=== PATIENT | male | born 1960 | race Caucasian/White ===

== ENCOUNTER 2016-12-12 11:51 | Inpatient (IN) | payer OTHER ==
[2016-12-12 13:41] VITALS: BMI 35.5
--- NOTE | 2016-12-12 17:01 | HP ---
Admission ROS [facility] - [facility] Chief Complaint: I WANT TO GO TO REHAB Allergies/Adverse Reactions: Allergies Allergy/AdvReac Type Severity Reaction Status Date / Time No Known Allergies Allergy Verified 12/12/16 16:12 History of Present Illness: 56 YEARS OLD MALE WITH LONG HISTORY OF ALCOHOL, OPIUM, NICOTINE DEPENDENCE, HAS HYPERTENSION DIABETES II DVT, HEPATITIS C TREATED, AND DEPRESSION IS ADMITTED TO REHAB. Exam Limitations: No Limitations - Ebola screening Have you traveled outside of the country in the last 21 days: No Have you had contact with anyone from an Ebola affected area: No Have you been sick,other than usual withdrawal symptoms: No Do you have a fever: No - Review of Systems Constitutional: Weight Stable EENT: reports: Other (EYE GLASSES) Respiratory: reports: No Symptoms reported Cardiac: reports: No Symptoms Reported GI: reports: No Symptoms Reported : reports: No Symptoms Reported Musculoskeletal: reports: Joint Pain (LEFT LEG) Integumentary: reports: Change in Color (LEFT LEG) Neuro: reports: No Symptoms reported Endocrine: reports: No Symptoms Reported Hematology: reports: Blood Clots (DVT LEFT LEG) Psychiatric: reports: Judgement Intact, Orientated x3, Depressed Other Systems: Reviewed and Negative Patient History - Patient Medical History Hx Anemia: No Hx Asthma: No Hx Chronic Obstructive Pulmonary Disease (COPD): No Hx Cancer: No Hx Cardiac Disorders: No Hx Congestive Heart Failure: No Hx Hypertension: Yes Hx Hypercholesterolemia: No Hx Pacemaker: No HX Cerebrovascular Accident: No Hx Seizures: No Hx Dementia: No Hx Diabetes: Yes Hx Gastrointestinal Disorders: No Hx Liver Disease: No Hx Genitourinary Disorders: No Hx Sexually Transmitted Disorders: No Hx Renal Disease (ESRD): No Hx Thyroid Disease: No Hx Human Immunodeficiency Virus (HIV): No Hx Hepatitis C: Yes (TREATED) Hx Depression: Yes Hx Suicide Attempt: No Hx Bipolar Disorder: No Hx Schizophrenia: No - Patient Surgical History Past Surgical History: No - PPD History Previous Implant?: Yes Documented Results: Negative w/o proof Implanted On Prior [facility] Admission?: No PPD to be Administered?: Yes - Smoking Cessation Smoking history: Current every day smoker Have you smoked in the past 12 months: Yes Aproximately how many cigarettes per day: 8 Cigars Per Day: 0 Hx Chewing Tobacco Use: No Initiated information on smoking cessation: Yes 'Breaking Loose' booklet given: 06/16/17 - Substance & Tx. History Hx Alcohol Use: Yes Hx Substance Use: Yes Substance Use Type: Alcohol, Heroin Hx Substance Use Treatment: Yes ([facility] 12/07-12/12/2016 DETOX) - Substances Abused Alcohol Route: Oral Frequency: Daily Amount used: [id number] BEER Age of first use: 14 Date of Last Use: 12/05/16 Heroin Route: Inhalation Frequency: Daily Amount used: 10 BAGS Age of first use: 14 Date of Last Use: 12/05/16 Family Disease History - Family Disease History Family Disease History: Diabetes: Father, Mother, Brother, Sister, Heart Disease : Mother Admission Physical Exam [facility] - Vital Signs Vital Signs: Vital Signs - 24 hr 12/12/16 13:38 Temperature 96.8 F L Pulse Rate 70 Respiratory 18 Rate Blood Pressure 138/70 - Physical General Appearance: Yes: No Apparent Distress, Appropriately Dressed, Obese HEENTM: Yes: Hearing grossly Normal, Normal ENT Inspection, Normocephalic, Normal Voice Respiratory: Yes: Chest Non-Tender, Lungs Clear, Normal Breath Sounds, No Respiratory Distress, No Accessory Muscle Use Neck: Yes: Supple, Trachea in good position Breast: Yes: Breasts Symetrical Cardiology: Yes: Regular Rhythm, Regular Rate, S1, S2 Abdominal: Yes: Non Tender, Soft Genitourinary: Yes: Within Normal Limits Back: Yes: Normal Inspection Musculoskeletal: Yes: full range of Motion, Gait Steady, Joint swelling (LEFT LOWER EXTREMITY) Extremities: Yes: Normal Range of Motion, Non-Tender, Swelling (LEFT LOWER EXTREMITY) Neurological: Yes: Fully Oriented, Alert, Motor Strength 5/5, Normal Mood/Affect , Normal Response Integumentary: Yes: Warm, Erythema (LEFT LOWER EXTREMITY) Lymphatic: Yes: Within Normal Limits - Diagnostic (1) Alcohol dependence with uncomplicated withdrawal Current Visit: Yes Status: Acute (2) Opioid dependence with withdrawal Current Visit: Yes Status: Acute (3) Hypertension Current Visit: Yes Status: Chronic Qualifiers: Hypertension type: essential hypertension Qualified Code(s): I10 - Essential (primary) hypertension (4) Diabetes mellitus, type II, insulin dependent Current Visit: Yes Status: Chronic (5) 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 Current Visit: Yes Status: Chronic Qualifiers: Laterality: left Qualified Code(s): I82.412 - Acute embolism and thrombosis of left femoral vein (6) Nicotine dependence Current Visit: Yes Status: Acute Qualifiers: Nicotine product type: cigarettes Substance use status: in withdrawal Qualified Code(s): F17.213 - Nicotine dependence, cigarettes, with withdrawal Cleared for Admission [facility] - Detox or Rehab [facility] Level of Care: Observation Bed Detox Regimen/Protocol: Not Applicable Claeared for Rehab Admission: Yes [facility] Breath Alcohol Content Breath Alcohol Content: 0 Urine Drug Screen - Results Drug Screen Negative: No Urine Drug Screen Results: BZO-Benzodiazepines, MTD-Methadone
[2016-12-12] MEDS ORDERED: guaiFENesin/D-METHORPHAN HB 10 ML UNIT-DOSE CUPS PO PRN (17:10)
[2016-12-12] MEDS ORDERED: P-EPHED 60MG/TRIPROLIDI 2.5MG TABLET PO PRN (17:10)
[2016-12-12] MEDS ORDERED: NICOTINE POLACRILEX 2 MG GUM BC PRN (17:10)
[2016-12-12] MEDS ORDERED: MAGNESIUM CITRATE 300 ML BOTTLE PO PRN (17:10)
[2016-12-12] MEDS ORDERED: LOPERAMIDE HCL 2 MG CAPSULE PO PRN (17:10)
[2016-12-12] MEDS ORDERED: MAGNESIUM HYDROX 2400MG/30ML ORAL SUSPENSION 30 ML CUP PO PRN (17:10)
[2016-12-12] MEDS ORDERED: MENTHOL/PHENOL 1 EACH UD MM PRN (17:10)
[2016-12-12] MEDS ORDERED: MAG HYDROX/AL HYDROX/SIMETH 30 ML UNIT-DOSE CUP PO PRN (17:10)
[2016-12-12] MEDS ORDERED: INSULIN (NOVOLOG) ASPART 100 UNITS/ML 10ML VIAL ONE ×2 (21:42→23:11)
[2016-12-12] MEDS: INSULIN SLIDING SCALE (NOVOLOG) 1 VIAL SQ SCH (21:44)
[2016-12-12] MEDS: THIAMINE HCL 100 MG TABLET (FP) PO SCH (21:45)
[2016-12-12] MEDS: diphenhydrAMINE HCL 50 MG CAPSULE PO PRN (21:46)
[2016-12-12] MEDS: APIXABAN 5 MG TABLET PO SCH (21:46)
[2016-12-12] MEDS ORDERED: INSULIN SLIDING SCALE (NOVOLOG) 1 VIAL SQ SCH (22:00)
[2016-12-12] MEDS ORDERED: TUBERCULIN PPD 5 TU/0.1ML VIAL ID ONE (22:51)
[2016-12-12] MEDS: INSULIN DETEMIR 100 UNITS/ML MDV SQ SCH (22:57)
[2016-12-12 23:53] LABS: URINE APPEARANCE CLEAR; URINE BILIRUBIN NEGATIVE (NEGATIVE); URINE BLOOD NEGATIVE (NEGATIVE); URINE COLOR YELLOW; URINE GLUCOSE (UA) 3+ (NEGATIVE); URINE KETONE NEGATIVE (NEGATIVE); URINE LEUK ESTERASE NEGATIVE (NEGATIVE); URINE NITRITE NEGATIVE (NEGATIVE); URINE PROTEIN NEGATIVE (NEGATIVE); URINE UROBILINOGEN NEGATIVE E.U./dl (0.2-1.0)
[2016-12-13] MEDS: DOCUSATE SODIUM 100 MG CAPSULE (FP) PO SCH ×3 (00:17→21:51)
[2016-12-13] MEDS: INSULIN DETEMIR 100 UNITS/ML MDV SQ SCH ×3 (00:17→21:53)
[2016-12-13] MEDS: metFORMIN HCL 500 MG TABLET (FP) PO SCH ×2 (06:14→16:58)
[2016-12-13] MEDS: sitaGLIPtin PHOSPHATE 100 MG TABLET (FP) PO SCH (06:14)
[2016-12-13] MEDS: INSULIN SLIDING SCALE (NOVOLOG) 1 VIAL SQ SCH ×4 (06:14→21:49)
[2016-12-13] MEDS ORDERED: INSULIN (NOVOLOG) ASPART 100 UNITS/ML 10ML VIAL ONE ×4 (06:56→22:57)
[2016-12-13] MEDS ORDERED: sitaGLIPtin PHOSPHATE 50 MG TABLET PO SCH (07:00)
[2016-12-13] MEDS ORDERED: metFORMIN HCL 500 MG TABLET (FP) PO SCH (07:00)
[2016-12-13] MEDS: METOPROLOL SUCCINATE 100 MG TAB.SR.24H (FP) PO SCH (09:48)
[2016-12-13] MEDS: ASPIRIN 81 MG CHEWABLE TABLETS PO SCH (09:48)
[2016-12-13] MEDS: PRENATAL VITAMINS W/ FOLIC ACID TABLET (FP) PO SCH (09:49)
[2016-12-13] MEDS: HYDROCHLOROTHIAZIDE 25 MG TABLET (FP) PO SCH (09:49)
[2016-12-13] MEDS: NICOTINE 14 MG/24 HOURS TOPICAL PATCH TD SCH (09:49)
[2016-12-13] MEDS: LISINOPRIL 20 MG TABLET (FP) PO SCH (09:49)
[2016-12-13] MEDS: APIXABAN 5 MG TABLET PO SCH ×2 (09:49→21:52)
[2016-12-13] MEDS ORDERED: METOPROLOL SUCCINATE 100 MG TAB.SR.24H (FP) PO SCH (10:00)
[2016-12-13] MEDS ORDERED: LISINOPRIL 20 MG TABLET (FP) PO SCH (10:00)
[2016-12-13] MEDS ORDERED: HYDROCHLOROTHIAZIDE 25 MG TABLET (FP) PO SCH (10:00)
[2016-12-13 10:22] LABS: MCH 28.7 pg (25.7-33.7); MCHC 32.4 g/dl (32.0-35.9); MEAN CELL VOLUME 88.6 fl (80-96); MEAN PLT VOLUME 10.2 fl (7.5-11.1); PLATELET COUNT 264 K/MM3 (134-434); RDW 13.7 % (11.9-15.9); WHITE BLOOD COUNT 9.7 K/mm3 (4.0-10.0)
[2016-12-13] MEDS: hydrOXYzine PAMOATE 50 MG CAPSULE (FP) PO PRN (10:55)
[2016-12-13] MEDS: ACETAMINOPHEN 325 MG TABLET (FP) PO PRN (10:55)
[2016-12-13 11:00] LABS: ALBUMIN 3.4 g/dl (3.4-5.0); ALK PHOS 95 U/L (45-117); ANION GAP 12 (8-16); BILIRUBIN,TOTAL 0.4 mg/dL (0.2-1.0); CO2 25 mmol/L (21-32); CREATININE 0.9 mg/dL (0.7-1.3); GLUCOSE,RANDOM 202 mg/dL (74-106); SGPT/ALT 41 U/L (12-78); TOT PROT 6.5 g/dl (6.4-8.2)
[2016-12-13 11:01] LABS: SGOT/AST 26 U/L (15-37)
[2016-12-13] MEDS: THIAMINE HCL 100 MG TABLET (FP) PO SCH (21:51)
[2016-12-13] MEDS: diphenhydrAMINE HCL 50 MG CAPSULE PO PRN (21:52)
[2016-12-14] MEDS: INSULIN SLIDING SCALE (NOVOLOG) 1 VIAL SQ SCH ×4 (06:19→21:22)
[2016-12-14] MEDS: metFORMIN HCL 500 MG TABLET (FP) PO SCH ×2 (06:20→16:44)
[2016-12-14] MEDS: sitaGLIPtin PHOSPHATE 100 MG TABLET (FP) PO SCH (06:20)
[2016-12-14] MEDS ORDERED: INSULIN (NOVOLOG) ASPART 100 UNITS/ML 10ML VIAL ONE ×4 (06:57→22:33)
[2016-12-14] MEDS ORDERED: APIXABAN 5 MG TABLET PO SCH (10:00)
[2016-12-14] MEDS: HYDROCHLOROTHIAZIDE 25 MG TABLET (FP) PO SCH (10:09)
[2016-12-14] MEDS: hydrOXYzine PAMOATE 50 MG CAPSULE (FP) PO PRN (10:09)
[2016-12-14] MEDS: PRENATAL VITAMINS W/ FOLIC ACID TABLET (FP) PO SCH (10:09)
[2016-12-14] MEDS: LISINOPRIL 20 MG TABLET (FP) PO SCH (10:09)
[2016-12-14] MEDS: METOPROLOL SUCCINATE 100 MG TAB.SR.24H (FP) PO SCH (10:09)
[2016-12-14] MEDS: APIXABAN 5 MG TABLET PO SCH ×2 (10:09→21:18)
[2016-12-14] MEDS: DOCUSATE SODIUM 100 MG CAPSULE (FP) PO SCH ×2 (10:09→21:17)
[2016-12-14] MEDS: ASPIRIN 81 MG CHEWABLE TABLETS PO SCH (10:09)
[2016-12-14] MEDS: NICOTINE 14 MG/24 HOURS TOPICAL PATCH TD SCH (10:10)
[2016-12-14] MEDS: ACETAMINOPHEN 325 MG TABLET (FP) PO PRN (10:12)
--- NOTE | 2016-12-14 10:24 | EKG ---
Test Reason : Blood Pressure : / mmHG Vent. Rate : 079 BPM Atrial Rate : 079 BPM P-R Int : 164 ms QRS Dur : 096 ms QT Int : 386 ms P-R-T Axes : 058 001 055 degrees QTc Int : 442 ms NORMAL SINUS RHYTHM NON-SPECIFIC INTRA-VENTRICULAR CONDUCTION DELAY NO PREVIOUS ECGS AVAILABLE Confirmed by HAYDEN LYNN MD ([id number]) on 12/14/2016 10:24:33 AM Referred By: Chen Mchugh Confirmed By:HAYDEN LYNN MD
[2016-12-14] MEDS: diphenhydrAMINE HCL 50 MG CAPSULE PO PRN (21:18)
[2016-12-14] MEDS: THIAMINE HCL 100 MG TABLET (FP) PO SCH (21:18)
[2016-12-14] MEDS: INSULIN DETEMIR 100 UNITS/ML MDV SQ SCH ×2 (21:21)
[2016-12-15] MEDS: sitaGLIPtin PHOSPHATE 100 MG TABLET (FP) PO SCH (06:13)
[2016-12-15] MEDS: INSULIN SLIDING SCALE (NOVOLOG) 1 VIAL SQ SCH ×4 (06:13→21:35)
[2016-12-15] MEDS: metFORMIN HCL 500 MG TABLET (FP) PO SCH ×2 (06:13→16:49)
[2016-12-15] MEDS ORDERED: INSULIN (NOVOLOG) ASPART 100 UNITS/ML 10ML VIAL ONE ×3 (06:45→22:40)
[2016-12-15] MEDS: ASPIRIN 81 MG CHEWABLE TABLETS PO SCH (10:18)
[2016-12-15] MEDS: PRENATAL VITAMINS W/ FOLIC ACID TABLET (FP) PO SCH (10:18)
[2016-12-15] MEDS: LISINOPRIL 20 MG TABLET (FP) PO SCH (10:19)
[2016-12-15] MEDS: APIXABAN 5 MG TABLET PO SCH ×2 (10:19→21:38)
[2016-12-15] MEDS: HYDROCHLOROTHIAZIDE 25 MG TABLET (FP) PO SCH (10:19)
[2016-12-15] MEDS: NICOTINE 14 MG/24 HOURS TOPICAL PATCH TD SCH (10:19)
[2016-12-15] MEDS: METOPROLOL SUCCINATE 100 MG TAB.SR.24H (FP) PO SCH (10:19)
[2016-12-15] MEDS: DOCUSATE SODIUM 100 MG CAPSULE (FP) PO SCH ×2 (10:19→21:38)
--- NOTE | 2016-12-15 12:32 | PN ---
[facility] Progress Note Note: patient has been on suboxone 8mg/2mg 2 films daily,confrmed with patient's pharmacist by nurse, will give suboxone 8mgs/2 mgs flim bid
--- NOTE | 2016-12-15 14:12 | HP ---
Psychiatrist Admission - Data Date of interview: 12/15/16 Admission source: S/ACI Identifying data: This is the first 5N inpatient rehabilitaiton admission for this 56 year old single male who is unemployed and on SSI, residing [place] the [place]. 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 Smokes cigarettes 8 a day Psychiatric History: PAtient reports no history of psychiatric hospitalization, he reports has been in treatmet for depression for this pastyear, sees the psychiatrist at [facility] and currently on Trazodone 100 mg oo hs and Lexapro 20 mg po daily. Physical/Sexual Abuse/Trauma History: Reports no history of sexual, physical and verbal abuse. Additional Comment: Reports was in absstinence 1,5 year leapsed 6 months ago Vital Signs: Vital Signs - 24 hr 12/15/16 12/15/16 12/15/16 00:30 03:30 06:44 Temperature 98.1 F Pulse Rate 63 Respiratory 16 16 20 Rate Blood Pressure 143/86 12/15/16 10:00 Temperature Pulse Rate 62 Respiratory Rate Blood Pressure 136/83 Allergies/Adverse Reactions: Allergies Allergy/AdvReac Type Severity Reaction Status Date / Time No Known Allergies Allergy Verified 12/12/16 16:12 Date of last physical exam: 12/12/16 Concur with the findings of this exam: Yes - Substance Abuse/Tx History Hx Alcohol Use: Yes Hx Substance Use: Yes Substance Use Type: Alcohol (8-10 cans a beer daily), Heroin (10 bags a day) Hx Substance Use Treatment: Yes ([facility], [facility] ) - Admission Criteria Previous failed treatment: Yes Poor recovery environment: Yes Comorbidities: Yes Lacks judgement: Yes Mental Status Exam - Mental Status Exam Alert and Oriented to: Time, Place, Person Cognitive Function: Good Patient Appearance: Well Groomed Mood: Hopeful Affect: Appropriate, Mood Congruent Patient Behavior: Appropriate, Cooperative Speech Pattern: Clear, Appropriate Voice Loudness: Normal Thought Process: Intact, Goal Oriented Thought Disorder: Not Present Hallucinations: Denies Suicidal Ideation: Denies Homicidal Ideation: Denies Insight/Judgement: Fair Sleep: Fair Appetite: Fair Muscle strength/Tone: Normal Gait/Station: Normal Psychiatric Findings - Problem List ([place] 1, 2,3) (1) Nicotine dependence Current Visit: Yes Status: Acute Qualifiers: Nicotine product type: cigarettes Substance use status: in withdrawal Qualified Code(s): F17.213 - Nicotine dependence, cigarettes, with withdrawal (2) Hypertension Current Visit: Yes Status: Chronic Qualifiers: Hypertension type: essential hypertension Qualified Code(s): I10 - Essential (primary) hypertension (3) Alcohol dependence Current Visit: Yes Status: Acute (4) Opioid dependence Current Visit: Yes Status: Acute (5) MDD (major depressive disorder) Current Visit: Yes Status: Acute - Initial Treatment Plan Initial Treatment Plan: Will continue his current medications, monitor progress as needed.
[2016-12-15] MEDS: INSULIN DETEMIR 100 UNITS/ML MDV SQ SCH ×2 (21:36→21:37)
[2016-12-15] MEDS: THIAMINE HCL 100 MG TABLET (FP) PO SCH (21:38)
[2016-12-15] MEDS: traZODone HCL 100 MG TABLET (FP) PO SCH (21:38)
[2016-12-15] MEDS: BUPRENORPHINE/NALOXONE 8 MG/2 MG FILM PACKET SL SCH (21:39)
[2016-12-16] MEDS: sitaGLIPtin PHOSPHATE 100 MG TABLET (FP) PO SCH (06:09)
[2016-12-16] MEDS: metFORMIN HCL 500 MG TABLET (FP) PO SCH ×2 (06:09→16:52)
[2016-12-16] MEDS: INSULIN SLIDING SCALE (NOVOLOG) 1 VIAL SQ SCH ×4 (06:09→21:38)
[2016-12-16] MEDS: CYCLOBENZAPRINE HCL 10 MG TABLET (FP) PO PRN (06:10)
[2016-12-16] MEDS ORDERED: INSULIN (NOVOLOG) ASPART 100 UNITS/ML 10ML VIAL ONE ×4 (07:00→22:25)
[2016-12-16] MEDS: ESCITALOPRAM OXALATE 20 MG TABLET (FP) PO SCH (10:09)
[2016-12-16] MEDS: DOCUSATE SODIUM 100 MG CAPSULE (FP) PO SCH ×2 (10:09→21:38)
[2016-12-16] MEDS: ASPIRIN 81 MG CHEWABLE TABLETS PO SCH (10:09)
[2016-12-16] MEDS: APIXABAN 5 MG TABLET PO SCH ×2 (10:09→21:38)
[2016-12-16] MEDS: NICOTINE 14 MG/24 HOURS TOPICAL PATCH TD SCH (10:09)
[2016-12-16] MEDS: LISINOPRIL 20 MG TABLET (FP) PO SCH (10:09)
[2016-12-16] MEDS: HYDROCHLOROTHIAZIDE 25 MG TABLET (FP) PO SCH (10:09)
[2016-12-16] MEDS: PRENATAL VITAMINS W/ FOLIC ACID TABLET (FP) PO SCH (10:09)
[2016-12-16] MEDS: METOPROLOL SUCCINATE 100 MG TAB.SR.24H (FP) PO SCH (10:10)
[2016-12-16] MEDS: BUPRENORPHINE/NALOXONE 8 MG/2 MG FILM PACKET SL SCH ×2 (10:10→21:38)
[2016-12-16] MEDS: traZODone HCL 100 MG TABLET (FP) PO SCH (21:38)
[2016-12-16] MEDS: THIAMINE HCL 100 MG TABLET (FP) PO SCH (21:38)
[2016-12-16] MEDS: INSULIN DETEMIR 100 UNITS/ML MDV SQ SCH ×2 (21:39)
[2016-12-16] MEDS: diphenhydrAMINE HCL 50 MG CAPSULE PO PRN (21:41)
[2016-12-17] MEDS: sitaGLIPtin PHOSPHATE 100 MG TABLET (FP) PO SCH (06:20)
[2016-12-17] MEDS: metFORMIN HCL 500 MG TABLET (FP) PO SCH ×2 (06:20→16:53)
[2016-12-17] MEDS: INSULIN SLIDING SCALE (NOVOLOG) 1 VIAL SQ SCH ×4 (06:20→21:25)
[2016-12-17] MEDS ORDERED: INSULIN (NOVOLOG) ASPART 100 UNITS/ML 10ML VIAL ONE (06:57)
[2016-12-17] MEDS: APIXABAN 5 MG TABLET PO SCH ×2 (10:06→21:25)
[2016-12-17] MEDS: ASPIRIN 81 MG CHEWABLE TABLETS PO SCH (10:06)
[2016-12-17] MEDS: LISINOPRIL 20 MG TABLET (FP) PO SCH (10:06)
[2016-12-17] MEDS: DOCUSATE SODIUM 100 MG CAPSULE (FP) PO SCH ×2 (10:06→21:25)
[2016-12-17] MEDS: PRENATAL VITAMINS W/ FOLIC ACID TABLET (FP) PO SCH (10:06)
[2016-12-17] MEDS: METOPROLOL SUCCINATE 100 MG TAB.SR.24H (FP) PO SCH (10:06)
[2016-12-17] MEDS: ESCITALOPRAM OXALATE 20 MG TABLET (FP) PO SCH (10:06)
[2016-12-17] MEDS: NICOTINE 14 MG/24 HOURS TOPICAL PATCH TD SCH (10:07)
[2016-12-17] MEDS: BUPRENORPHINE/NALOXONE 8 MG/2 MG FILM PACKET SL SCH ×2 (10:07→21:25)
[2016-12-17] MEDS: HYDROCHLOROTHIAZIDE 25 MG TABLET (FP) PO SCH (10:07)
[2016-12-17] MEDS: traZODone HCL 100 MG TABLET (FP) PO SCH (21:25)
[2016-12-17] MEDS: INSULIN DETEMIR 100 UNITS/ML MDV SQ SCH ×2 (21:25→21:26)
[2016-12-17] MEDS: THIAMINE HCL 100 MG TABLET (FP) PO SCH (21:25)
[2016-12-17] MEDS: CYCLOBENZAPRINE HCL 10 MG TABLET (FP) PO PRN (21:27)
[2016-12-18] MEDS: metFORMIN HCL 500 MG TABLET (FP) PO SCH ×2 (06:18→16:57)
[2016-12-18] MEDS: sitaGLIPtin PHOSPHATE 100 MG TABLET (FP) PO SCH (06:18)
[2016-12-18] MEDS: INSULIN SLIDING SCALE (NOVOLOG) 1 VIAL SQ SCH ×4 (06:19→21:37)
[2016-12-18] MEDS: BUPRENORPHINE/NALOXONE 8 MG/2 MG FILM PACKET SL SCH ×2 (10:09→21:37)
[2016-12-18] MEDS: NICOTINE 14 MG/24 HOURS TOPICAL PATCH TD SCH (10:09)
[2016-12-18] MEDS: HYDROCHLOROTHIAZIDE 25 MG TABLET (FP) PO SCH (10:09)
[2016-12-18] MEDS: PRENATAL VITAMINS W/ FOLIC ACID TABLET (FP) PO SCH (10:09)
[2016-12-18] MEDS: LISINOPRIL 20 MG TABLET (FP) PO SCH (10:09)
[2016-12-18] MEDS: DOCUSATE SODIUM 100 MG CAPSULE (FP) PO SCH ×2 (10:09→21:36)
[2016-12-18] MEDS: METOPROLOL SUCCINATE 100 MG TAB.SR.24H (FP) PO SCH (10:09)
[2016-12-18] MEDS: APIXABAN 5 MG TABLET PO SCH ×2 (10:09→21:36)
[2016-12-18] MEDS: ESCITALOPRAM OXALATE 20 MG TABLET (FP) PO SCH (10:09)
[2016-12-18] MEDS: ASPIRIN 81 MG CHEWABLE TABLETS PO SCH (10:09)
[2016-12-18] MEDS: CYCLOBENZAPRINE HCL 10 MG TABLET (FP) PO PRN ×2 (10:11→21:38)
[2016-12-18] MEDS ORDERED: INSULIN (NOVOLOG) ASPART 100 UNITS/ML 10ML VIAL ONE (12:00)
[2016-12-18] MEDS: traZODone HCL 100 MG TABLET (FP) PO SCH (21:36)
[2016-12-18] MEDS: THIAMINE HCL 100 MG TABLET (FP) PO SCH (21:36)
[2016-12-18] MEDS: INSULIN DETEMIR 100 UNITS/ML MDV SQ SCH ×2 (21:39→21:40)
[2016-12-19] MEDS: INSULIN SLIDING SCALE (NOVOLOG) 1 VIAL SQ SCH ×4 (06:21→21:44)
[2016-12-19] MEDS: metFORMIN HCL 500 MG TABLET (FP) PO SCH ×2 (06:21→16:53)
[2016-12-19] MEDS: sitaGLIPtin PHOSPHATE 100 MG TABLET (FP) PO SCH (06:21)
[2016-12-19] MEDS: BUPRENORPHINE/NALOXONE 8 MG/2 MG FILM PACKET SL SCH ×2 (09:55→21:43)
[2016-12-19] MEDS: DOCUSATE SODIUM 100 MG CAPSULE (FP) PO SCH ×2 (09:55→21:43)
[2016-12-19] MEDS: LISINOPRIL 20 MG TABLET (FP) PO SCH (09:55)
[2016-12-19] MEDS: APIXABAN 5 MG TABLET PO SCH ×2 (09:55→21:43)
[2016-12-19] MEDS: METOPROLOL SUCCINATE 100 MG TAB.SR.24H (FP) PO SCH (09:55)
[2016-12-19] MEDS: HYDROCHLOROTHIAZIDE 25 MG TABLET (FP) PO SCH (09:55)
[2016-12-19] MEDS: ESCITALOPRAM OXALATE 20 MG TABLET (FP) PO SCH (09:55)
[2016-12-19] MEDS: NICOTINE 14 MG/24 HOURS TOPICAL PATCH TD SCH (09:55)
[2016-12-19] MEDS: PRENATAL VITAMINS W/ FOLIC ACID TABLET (FP) PO SCH (09:55)
[2016-12-19] MEDS: ASPIRIN 81 MG CHEWABLE TABLETS PO SCH (09:55)
[2016-12-19] MEDS: CYCLOBENZAPRINE HCL 10 MG TABLET (FP) PO PRN ×2 (09:57→21:45)
[2016-12-19] MEDS: INSULIN DETEMIR 100 UNITS/ML MDV SQ SCH ×2 (21:43→21:44)
[2016-12-19] MEDS: traZODone HCL 100 MG TABLET (FP) PO SCH (21:43)
[2016-12-19] MEDS: THIAMINE HCL 100 MG TABLET (FP) PO SCH (21:44)
[2016-12-20] MEDS: sitaGLIPtin PHOSPHATE 100 MG TABLET (FP) PO SCH (06:27)
[2016-12-20] MEDS: metFORMIN HCL 500 MG TABLET (FP) PO SCH ×2 (06:27→17:06)
[2016-12-20] MEDS: INSULIN SLIDING SCALE (NOVOLOG) 1 VIAL SQ SCH ×4 (06:28→21:56)
[2016-12-20] MEDS: ASPIRIN 81 MG CHEWABLE TABLETS PO SCH (09:51)
[2016-12-20] MEDS: ESCITALOPRAM OXALATE 20 MG TABLET (FP) PO SCH (09:51)
[2016-12-20] MEDS: PRENATAL VITAMINS W/ FOLIC ACID TABLET (FP) PO SCH (09:51)
[2016-12-20] MEDS: APIXABAN 5 MG TABLET PO SCH ×2 (09:51→21:49)
[2016-12-20] MEDS: METOPROLOL SUCCINATE 100 MG TAB.SR.24H (FP) PO SCH (09:51)
[2016-12-20] MEDS: DOCUSATE SODIUM 100 MG CAPSULE (FP) PO SCH ×2 (09:52→21:49)
[2016-12-20] MEDS: BUPRENORPHINE/NALOXONE 8 MG/2 MG FILM PACKET SL SCH ×2 (09:52→21:50)
[2016-12-20] MEDS: CYCLOBENZAPRINE HCL 10 MG TABLET (FP) PO PRN ×2 (09:53→21:52)
[2016-12-20] MEDS: LISINOPRIL 20 MG TABLET (FP) PO SCH (09:55)
[2016-12-20] MEDS: NICOTINE 14 MG/24 HOURS TOPICAL PATCH TD SCH (09:55)
[2016-12-20] MEDS: HYDROCHLOROTHIAZIDE 25 MG TABLET (FP) PO SCH (09:55)
[2016-12-20] MEDS: THIAMINE HCL 100 MG TABLET (FP) PO SCH (21:49)
[2016-12-20] MEDS: diphenhydrAMINE HCL 50 MG CAPSULE PO PRN (21:49)
[2016-12-20] MEDS ORDERED: traZODone HCL 50 MG TABLET (FP) ONE (21:52)
[2016-12-20] MEDS: INSULIN DETEMIR 100 UNITS/ML MDV SQ SCH ×2 (21:55→21:56)
[2016-12-20] MEDS: traZODone HCL 100 MG TABLET (FP) PO SCH (21:55)
[2016-12-21] MEDS: metFORMIN HCL 500 MG TABLET (FP) PO SCH ×2 (06:10→16:36)
[2016-12-21] MEDS: sitaGLIPtin PHOSPHATE 100 MG TABLET (FP) PO SCH (06:10)
[2016-12-21] MEDS: INSULIN SLIDING SCALE (NOVOLOG) 1 VIAL SQ SCH ×4 (06:11→22:15)
[2016-12-21] MEDS: BUPRENORPHINE/NALOXONE 8 MG/2 MG FILM PACKET SL SCH ×2 (10:10→21:26)
[2016-12-21] MEDS: ASPIRIN 81 MG CHEWABLE TABLETS PO SCH (10:10)
[2016-12-21] MEDS: APIXABAN 5 MG TABLET PO SCH ×2 (10:11→21:26)
[2016-12-21] MEDS: METOPROLOL SUCCINATE 100 MG TAB.SR.24H (FP) PO SCH (10:11)
[2016-12-21] MEDS: HYDROCHLOROTHIAZIDE 25 MG TABLET (FP) PO SCH (10:11)
[2016-12-21] MEDS: ESCITALOPRAM OXALATE 20 MG TABLET (FP) PO SCH (10:11)
[2016-12-21] MEDS: PRENATAL VITAMINS W/ FOLIC ACID TABLET (FP) PO SCH (10:11)
[2016-12-21] MEDS: LISINOPRIL 20 MG TABLET (FP) PO SCH (10:11)
[2016-12-21] MEDS: DOCUSATE SODIUM 100 MG CAPSULE (FP) PO SCH ×2 (10:11→22:08)
[2016-12-21] MEDS: CYCLOBENZAPRINE HCL 10 MG TABLET (FP) PO PRN ×2 (10:12→21:27)
[2016-12-21] MEDS: NICOTINE 14 MG/24 HOURS TOPICAL PATCH TD SCH (10:13)
[2016-12-21] MEDS: traZODone HCL 100 MG TABLET (FP) PO SCH (21:26)
[2016-12-21] MEDS: diphenhydrAMINE HCL 50 MG CAPSULE PO PRN (21:27)
[2016-12-21] MEDS: THIAMINE HCL 100 MG TABLET (FP) PO SCH (21:28)
[2016-12-21] MEDS: INSULIN DETEMIR 100 UNITS/ML MDV SQ SCH ×2 (22:08)
[2016-12-22] MEDS: metFORMIN HCL 500 MG TABLET (FP) PO SCH ×2 (06:18→16:46)
[2016-12-22] MEDS: sitaGLIPtin PHOSPHATE 100 MG TABLET (FP) PO SCH (06:18)
[2016-12-22] MEDS: CYCLOBENZAPRINE HCL 10 MG TABLET (FP) PO PRN ×2 (06:20→21:36)
[2016-12-22] MEDS: INSULIN SLIDING SCALE (NOVOLOG) 1 VIAL SQ SCH ×4 (06:53→22:23)
[2016-12-22] MEDS: ESCITALOPRAM OXALATE 20 MG TABLET (FP) PO SCH (10:14)
[2016-12-22] MEDS: PRENATAL VITAMINS W/ FOLIC ACID TABLET (FP) PO SCH (10:14)
[2016-12-22] MEDS: ASPIRIN 81 MG CHEWABLE TABLETS PO SCH (10:14)
[2016-12-22] MEDS: LISINOPRIL 20 MG TABLET (FP) PO SCH (10:14)
[2016-12-22] MEDS: HYDROCHLOROTHIAZIDE 25 MG TABLET (FP) PO SCH (10:14)
[2016-12-22] MEDS: METOPROLOL SUCCINATE 100 MG TAB.SR.24H (FP) PO SCH (10:14)
[2016-12-22] MEDS: DOCUSATE SODIUM 100 MG CAPSULE (FP) PO SCH ×2 (10:15→21:35)
[2016-12-22] MEDS: NICOTINE 14 MG/24 HOURS TOPICAL PATCH TD SCH (10:15)
[2016-12-22] MEDS: BUPRENORPHINE/NALOXONE 8 MG/2 MG FILM PACKET SL SCH ×2 (10:16→21:35)
[2016-12-22] MEDS: APIXABAN 5 MG TABLET PO SCH ×2 (11:17→21:35)
[2016-12-22] MEDS: traZODone HCL 100 MG TABLET (FP) PO SCH (21:35)
[2016-12-22] MEDS: INSULIN DETEMIR 100 UNITS/ML MDV SQ SCH ×2 (21:37→21:38)
[2016-12-22] MEDS: THIAMINE HCL 100 MG TABLET (FP) PO SCH (22:25)
[2016-12-23] MEDS: sitaGLIPtin PHOSPHATE 100 MG TABLET (FP) PO SCH (06:17)
[2016-12-23] MEDS: metFORMIN HCL 500 MG TABLET (FP) PO SCH ×3 (06:17→17:37)
[2016-12-23] MEDS: INSULIN SLIDING SCALE (NOVOLOG) 1 VIAL SQ SCH ×4 (06:17→21:29)
[2016-12-23] MEDS: NICOTINE 14 MG/24 HOURS TOPICAL PATCH TD SCH (10:11)
[2016-12-23] MEDS: APIXABAN 5 MG TABLET PO SCH ×2 (10:11→21:27)
[2016-12-23] MEDS: ASPIRIN 81 MG CHEWABLE TABLETS PO SCH (10:11)
[2016-12-23] MEDS: ESCITALOPRAM OXALATE 20 MG TABLET (FP) PO SCH (10:11)
[2016-12-23] MEDS: BUPRENORPHINE/NALOXONE 8 MG/2 MG FILM PACKET SL SCH ×2 (10:11→21:29)
[2016-12-23] MEDS: LISINOPRIL 20 MG TABLET (FP) PO SCH (10:11)
[2016-12-23] MEDS: DOCUSATE SODIUM 100 MG CAPSULE (FP) PO SCH (10:11)
[2016-12-23] MEDS: PRENATAL VITAMINS W/ FOLIC ACID TABLET (FP) PO SCH (10:11)
[2016-12-23] MEDS: HYDROCHLOROTHIAZIDE 25 MG TABLET (FP) PO SCH (10:11)
[2016-12-23] MEDS: METOPROLOL SUCCINATE 100 MG TAB.SR.24H (FP) PO SCH (10:11)
[2016-12-23] MEDS: ACETAMINOPHEN 325 MG TABLET (FP) PO PRN (10:13)
[2016-12-23] MEDS: CYCLOBENZAPRINE HCL 10 MG TABLET (FP) PO PRN ×2 (10:13→21:27)
--- NOTE | 2016-12-23 11:10 | PN ---
[facility] Progress Note Note: COMPLAINT OF PAIN IN LEFT LEG WITH SWELLING,VARICOSES VEIN HISTORY OF DVT LEFT LEG ON ELIQUIS 5 MGS PO BID LEFT LEG WITH SWELLING,VARICOSE VEINS,NO ERYTHEMA ALSO HAS DIARRHEA WITH LOOSE BOWEL MOMENT ABDOMEN SOFT,NO DISTENTION,NO PAIN OR TENDERNESS BOWEL SOUND ACTIVE R/O DVT LEFT LEG DX VARICOSE VEIN LEFT LEG,R/O DVT LEFT LEG FUNCTIONAL GI DISORDER TREATMENT VENOUS DROPPLER LEFT LEG R/O DVT D/C COLACE DIET ADVISE IMODIUM PRN CLOSE MONITORING
--- NOTE | 2016-12-23 13:38 | PN ---
[facility] Progress Note Note: addendum venous droppler showed extensive dvt in common femoral through popliteal veins patient was admitted in [facility] from 12/05/16 to 12/07/16 for dvt left on eliquis admitted [facility] from 12/07/16 to 12/12/16 admitted at [facility] for 12/12/16 on eliquis 5 mgs po bid since then to contiune eliquis 5 mg po bid elevation of left leg as necessary patient will follow up with dr dina tobar his own pmd for follow up for dvt left left upon discharge
[2016-12-23] MEDS: traZODone HCL 100 MG TABLET (FP) PO SCH (21:27)
[2016-12-23] MEDS: INSULIN DETEMIR 100 UNITS/ML MDV SQ SCH (21:28)
[2016-12-23] MEDS: THIAMINE HCL 100 MG TABLET (FP) PO SCH (21:29)
[2016-12-24] MEDS: sitaGLIPtin PHOSPHATE 100 MG TABLET (FP) PO SCH (06:07)
[2016-12-24] MEDS: metFORMIN HCL 500 MG TABLET (FP) PO SCH ×2 (06:07→16:50)
[2016-12-24] MEDS: INSULIN SLIDING SCALE (NOVOLOG) 1 VIAL SQ SCH ×4 (06:07→21:19)
[2016-12-24 09:52] LABS: URINE APPEARANCE SLCLOUDY; URINE BILIRUBIN NEGATIVE (NEGATIVE); URINE BLOOD NEGATIVE (NEGATIVE); URINE COLOR LTYELLOW; URINE GLUCOSE (UA) NEGATIVE (NEGATIVE); URINE KETONE NEGATIVE (NEGATIVE); URINE LEUK ESTERASE NEGATIVE (NEGATIVE); URINE NITRITE NEGATIVE (NEGATIVE); URINE PROTEIN NEGATIVE (NEGATIVE); URINE UROBILINOGEN NEGATIVE E.U./dl (0.2-1.0)
[2016-12-24] MEDS: ASPIRIN 81 MG CHEWABLE TABLETS PO SCH (10:01)
[2016-12-24] MEDS: ESCITALOPRAM OXALATE 20 MG TABLET (FP) PO SCH (10:01)
[2016-12-24] MEDS: NICOTINE 14 MG/24 HOURS TOPICAL PATCH TD SCH (10:01)
[2016-12-24] MEDS: BUPRENORPHINE/NALOXONE 8 MG/2 MG FILM PACKET SL SCH ×2 (10:01→21:19)
[2016-12-24] MEDS: APIXABAN 5 MG TABLET PO SCH ×2 (10:01→21:19)
[2016-12-24] MEDS: LISINOPRIL 20 MG TABLET (FP) PO SCH (10:01)
[2016-12-24] MEDS: HYDROCHLOROTHIAZIDE 25 MG TABLET (FP) PO SCH (10:01)
[2016-12-24] MEDS: PRENATAL VITAMINS W/ FOLIC ACID TABLET (FP) PO SCH (10:01)
[2016-12-24] MEDS: METOPROLOL SUCCINATE 100 MG TAB.SR.24H (FP) PO SCH (10:02)
[2016-12-24] MEDS: INSULIN DETEMIR 100 UNITS/ML MDV SQ SCH (21:19)
[2016-12-24] MEDS: traZODone HCL 100 MG TABLET (FP) PO SCH (21:19)
[2016-12-24] MEDS: THIAMINE HCL 100 MG TABLET (FP) PO SCH (21:19)
[2016-12-25] MEDS: sitaGLIPtin PHOSPHATE 100 MG TABLET (FP) PO SCH (06:07)
[2016-12-25] MEDS: INSULIN SLIDING SCALE (NOVOLOG) 1 VIAL SQ SCH (06:07)
[2016-12-25] MEDS: metFORMIN HCL 500 MG TABLET (FP) PO SCH ×2 (06:07→16:45)
[2016-12-25] MEDS: BUPRENORPHINE/NALOXONE 8 MG/2 MG FILM PACKET SL SCH ×2 (10:14→21:20)
[2016-12-25] MEDS: APIXABAN 5 MG TABLET PO SCH ×2 (10:14→21:20)
[2016-12-25] MEDS: NICOTINE 14 MG/24 HOURS TOPICAL PATCH TD SCH (10:14)
[2016-12-25] MEDS: HYDROCHLOROTHIAZIDE 25 MG TABLET (FP) PO SCH (10:14)
[2016-12-25] MEDS: LISINOPRIL 20 MG TABLET (FP) PO SCH (10:14)
[2016-12-25] MEDS: ESCITALOPRAM OXALATE 20 MG TABLET (FP) PO SCH (10:14)
[2016-12-25] MEDS: ASPIRIN 81 MG CHEWABLE TABLETS PO SCH (10:14)
[2016-12-25] MEDS: PRENATAL VITAMINS W/ FOLIC ACID TABLET (FP) PO SCH (10:14)
[2016-12-25] MEDS: METOPROLOL SUCCINATE 100 MG TAB.SR.24H (FP) PO SCH (10:15)
[2016-12-25] MEDS: CYCLOBENZAPRINE HCL 10 MG TABLET (FP) PO PRN ×2 (10:17→21:20)
[2016-12-25] MEDS: INSULIN (NOVOLOG) ASPART 100 UNITS/ML 10ML VIAL SQ SCH (16:45)
[2016-12-25] MEDS: traZODone HCL 100 MG TABLET (FP) PO SCH (21:20)
[2016-12-25] MEDS: THIAMINE HCL 100 MG TABLET (FP) PO SCH (21:20)
[2016-12-25] MEDS: INSULIN DETEMIR 100 UNITS/ML MDV SQ SCH (21:20)
[2016-12-26] MEDS: sitaGLIPtin PHOSPHATE 100 MG TABLET (FP) PO SCH (06:05)
[2016-12-26] MEDS: metFORMIN HCL 500 MG TABLET (FP) PO SCH ×2 (06:05→17:25)
[2016-12-26] MEDS: INSULIN (NOVOLOG) ASPART 100 UNITS/ML 10ML VIAL SQ SCH ×2 (06:31→17:01)
[2016-12-26] MEDS: ASPIRIN 81 MG CHEWABLE TABLETS PO SCH (10:09)
[2016-12-26] MEDS: PRENATAL VITAMINS W/ FOLIC ACID TABLET (FP) PO SCH (10:09)
[2016-12-26] MEDS: APIXABAN 5 MG TABLET PO SCH ×2 (10:09→21:30)
[2016-12-26] MEDS: LISINOPRIL 20 MG TABLET (FP) PO SCH (10:09)
[2016-12-26] MEDS: METOPROLOL SUCCINATE 100 MG TAB.SR.24H (FP) PO SCH (10:09)
[2016-12-26] MEDS: HYDROCHLOROTHIAZIDE 25 MG TABLET (FP) PO SCH (10:09)
[2016-12-26] MEDS: ESCITALOPRAM OXALATE 20 MG TABLET (FP) PO SCH (10:09)
[2016-12-26] MEDS: BUPRENORPHINE/NALOXONE 8 MG/2 MG FILM PACKET SL SCH ×2 (10:09→21:31)
[2016-12-26] MEDS: CYCLOBENZAPRINE HCL 10 MG TABLET (FP) PO PRN ×2 (10:10→21:32)
[2016-12-26] MEDS: NICOTINE 14 MG/24 HOURS TOPICAL PATCH TD SCH (10:10)
[2016-12-26] MEDS: THIAMINE HCL 100 MG TABLET (FP) PO SCH (21:30)
[2016-12-26] MEDS: traZODone HCL 100 MG TABLET (FP) PO SCH (21:30)
[2016-12-26] MEDS: INSULIN DETEMIR 100 UNITS/ML MDV SQ SCH (21:34)
[2016-12-27] MEDS: metFORMIN HCL 500 MG TABLET (FP) PO SCH ×2 (06:05→16:50)
[2016-12-27] MEDS: sitaGLIPtin PHOSPHATE 100 MG TABLET (FP) PO SCH (06:05)
[2016-12-27] MEDS: INSULIN (NOVOLOG) ASPART 100 UNITS/ML 10ML VIAL SQ SCH ×2 (06:22→17:23)
[2016-12-27] MEDS: ASPIRIN 81 MG CHEWABLE TABLETS PO SCH (09:46)
[2016-12-27] MEDS: BUPRENORPHINE/NALOXONE 8 MG/2 MG FILM PACKET SL SCH ×2 (09:46→21:26)
[2016-12-27] MEDS: PRENATAL VITAMINS W/ FOLIC ACID TABLET (FP) PO SCH (09:46)
[2016-12-27] MEDS: METOPROLOL SUCCINATE 100 MG TAB.SR.24H (FP) PO SCH (09:47)
[2016-12-27] MEDS: ESCITALOPRAM OXALATE 20 MG TABLET (FP) PO SCH (09:47)
[2016-12-27] MEDS: APIXABAN 5 MG TABLET PO SCH ×2 (09:48→21:25)
[2016-12-27] MEDS: CYCLOBENZAPRINE HCL 10 MG TABLET (FP) PO PRN ×2 (09:48→21:28)
[2016-12-27] MEDS: LISINOPRIL 20 MG TABLET (FP) PO SCH (09:49)
[2016-12-27] MEDS: HYDROCHLOROTHIAZIDE 25 MG TABLET (FP) PO SCH (09:49)
[2016-12-27] MEDS: NICOTINE 14 MG/24 HOURS TOPICAL PATCH TD SCH (09:49)
[2016-12-27] MEDS: traZODone HCL 100 MG TABLET (FP) PO SCH (21:25)
[2016-12-27] MEDS: THIAMINE HCL 100 MG TABLET (FP) PO SCH (21:25)
[2016-12-27] MEDS: INSULIN DETEMIR 100 UNITS/ML MDV SQ SCH (21:28)
[2016-12-27] MEDS: ACETAMINOPHEN 325 MG TABLET (FP) PO PRN (22:08)
[2016-12-28] MEDS: metFORMIN HCL 500 MG TABLET (FP) PO SCH ×2 (06:00→16:39)
[2016-12-28] MEDS: INSULIN (NOVOLOG) ASPART 100 UNITS/ML 10ML VIAL SQ SCH ×2 (06:00→16:40)
[2016-12-28] MEDS: sitaGLIPtin PHOSPHATE 100 MG TABLET (FP) PO SCH (06:00)
[2016-12-28] MEDS: LISINOPRIL 20 MG TABLET (FP) PO SCH (09:53)
[2016-12-28] MEDS: APIXABAN 5 MG TABLET PO SCH ×2 (09:53→21:15)
[2016-12-28] MEDS: NICOTINE 14 MG/24 HOURS TOPICAL PATCH TD SCH (09:53)
[2016-12-28] MEDS: HYDROCHLOROTHIAZIDE 25 MG TABLET (FP) PO SCH (09:53)
[2016-12-28] MEDS: ASPIRIN 81 MG CHEWABLE TABLETS PO SCH (09:53)
[2016-12-28] MEDS: PRENATAL VITAMINS W/ FOLIC ACID TABLET (FP) PO SCH (09:53)
[2016-12-28] MEDS: ESCITALOPRAM OXALATE 20 MG TABLET (FP) PO SCH (09:53)
[2016-12-28] MEDS: BUPRENORPHINE/NALOXONE 8 MG/2 MG FILM PACKET SL SCH ×2 (09:53→22:01)
[2016-12-28] MEDS: METOPROLOL SUCCINATE 100 MG TAB.SR.24H (FP) PO SCH (09:53)
[2016-12-28] MEDS: CYCLOBENZAPRINE HCL 10 MG TABLET (FP) PO PRN (09:54)
[2016-12-28] MEDS: ACETAMINOPHEN 325 MG TABLET (FP) PO PRN ×2 (13:22→21:15)
[2016-12-28] MEDS: THIAMINE HCL 100 MG TABLET (FP) PO SCH (21:15)
[2016-12-28] MEDS: traZODone HCL 100 MG TABLET (FP) PO SCH (21:15)
[2016-12-28] MEDS: INSULIN DETEMIR 100 UNITS/ML MDV SQ SCH (21:17)
[2016-12-29] MEDS: metFORMIN HCL 500 MG TABLET (FP) PO SCH ×2 (06:11→16:42)
[2016-12-29] MEDS: sitaGLIPtin PHOSPHATE 100 MG TABLET (FP) PO SCH (06:11)
[2016-12-29] MEDS: INSULIN (NOVOLOG) ASPART 100 UNITS/ML 10ML VIAL SQ SCH ×2 (06:22→16:44)
--- NOTE | 2016-12-29 08:45 | PN ---
[facility] Progress Note Note: CONSTIPATION REQUESTING COLACE LEFT LEG WITH LESS SWELLING AND NO PAIN,IMPROVED,ON ELIQUIS 5 MG PO BID FOR DVT LEFT LEG
[2016-12-29] MEDS: HYDROCHLOROTHIAZIDE 25 MG TABLET (FP) PO SCH (10:05)
[2016-12-29] MEDS: PRENATAL VITAMINS W/ FOLIC ACID TABLET (FP) PO SCH (10:05)
[2016-12-29] MEDS: BUPRENORPHINE/NALOXONE 8 MG/2 MG FILM PACKET SL SCH ×2 (10:05→21:10)
[2016-12-29] MEDS: APIXABAN 5 MG TABLET PO SCH ×2 (10:05→21:10)
[2016-12-29] MEDS: NICOTINE 14 MG/24 HOURS TOPICAL PATCH TD SCH (10:05)
[2016-12-29] MEDS: METOPROLOL SUCCINATE 100 MG TAB.SR.24H (FP) PO SCH (10:05)
[2016-12-29] MEDS: ESCITALOPRAM OXALATE 20 MG TABLET (FP) PO SCH (10:05)
[2016-12-29] MEDS: LISINOPRIL 20 MG TABLET (FP) PO SCH (10:05)
[2016-12-29] MEDS: ASPIRIN 81 MG CHEWABLE TABLETS PO SCH (10:05)
[2016-12-29] MEDS: CYCLOBENZAPRINE HCL 10 MG TABLET (FP) PO PRN ×2 (10:07→21:13)
[2016-12-29] MEDS: DOCUSATE SODIUM 100 MG CAPSULE (FP) PO SCH ×2 (13:40→21:11)
--- NOTE | 2016-12-29 15:02 | PN ---
Psychiatric Progress Note Vital Signs: Vital Signs Period Temp Pulse Resp BP Sys/Mccallum Pulse Ox Last 24 Hr 97.6 F 56-61 16-18 113-133/69-72 Date of Session: 12/29/16 Chief Complaint:: progress update. HPI: Patient is addressing alcohol, opioid, nicotine dependence comorbid MDD. 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 Current Medications: Active Medications Generic Name Dose Route Start Last Admin Trade Name Freq PRN Reason Stop Dose Admin Acetaminophen 650 mg 12/12/16 17:10 12/28/16 21:15 Tylenol - PO 650 mg Q4H PRN Administration PAIN Al Hydroxide/Mg Hydroxide 30 ml 12/12/16 17:10 Mylanta Oral Suspension - PO Q6H PRN DYSPEPSIA Apixaban 5 mg 12/14/16 10:00 12/29/16 10:05 Eliquis - PO 01/03/17 22:01 5 mg BID MEENU Administration Aspirin 81 mg 12/13/16 10:00 12/29/16 10:05 Asa - PO 81 mg DAILY MEENU Administration Buprenorphine/Naloxone 1 each 12/28/16 22:00 12/29/16 10:05 Suboxone 8mg/2mg Sl Film - SL 1 each BID MEENU Administration Cyclobenzaprine HCl 10 mg 12/15/16 11:55 12/29/16 10:07 Flexeril - PO 10 mg TID PRN Administration MUSCLE SPASMS Diphenhydramine HCl 50 mg 12/12/16 17:10 12/21/16 21:27 Benadryl - PO 50 mg HSMR1 PRN Administration INSOMNIA Docusate Sodium 100 mg 12/29/16 14:00 12/29/16 13:40 Colace - PO Not Given TID MEENU Escitalopram Oxalate 20 mg 12/16/16 10:00 12/29/16 10:05 Lexapro - PO 20 mg DAILY MEENU Administration Eucalyptus/Menthol/Phenol/Sorbitol 1 each 12/12/16 17:10 Cepastat Lozenge - MM Q4H PRN SORE THROAT Guaifenesin 10 ml 12/12/16 17:10 Robitussin Dm - PO Q6H PRN COUGH Hydrochlorothiazide 25 mg 12/13/16 10:00 12/29/16 10:05 Hctz - PO 25 mg DAILY MEENU Administration Hydroxyzine Pamoate 50 mg 12/12/16 17:10 12/14/16 10:09 Vistaril - PO 50 mg Q4H PRN Administration AGITATION Insulin Aspart 0 units 12/25/16 16:30 12/29/16 06:22 Novolog Vial SQ Not Given BIDAC [facility] Protocol Insulin Detemir 12 units 12/12/16 22:00 12/28/16 21:17 Levemir Vial SQ 12 units HS [facility] Administration Lisinopril 20 mg 12/13/16 10:00 12/29/16 10:05 Prinivil PO 20 mg DAILY MEENU Administration Loperamide HCl 4 mg 12/12/16 17:10 Imodium - PO Q6H PRN DIARRHEA Magnesium Citrate 300 ml 12/12/16 17:10 Citroma - PO Q48H PRN CONSTIPATION Magnesium Hydroxide 30 ml 12/12/16 17:10 Milk Of Magnesia - PO DAILY PRN CONSTIPATION Metformin HCl 500 mg 12/23/16 17:15 12/29/16 06:11 Glucophage - PO 500 mg BID@0700,1630 [facility] Administration Metoprolol Succinate 100 mg 12/13/16 10:00 12/29/16 10:05 Toprol Xl - PO 100 mg DAILY MEENU Administration Nicotine 14 mg 12/13/16 10:00 12/29/16 10:05 Nicoderm Patch - TD 14 mg DAILY [facility] Administration Nicotine Polacrilex 2 mg 12/12/16 17:10 12/13/16 06:15 Nicorette Gum - BC 2 mg Q2H PRN Administration NICOTINE REPLACEMENT RX Multivit/Folic Acid/Iron 1 tab 12/13/16 10:00 12/29/16 10:05 Vitamins (Sjr) - PO 1 tab DAILY [facility] Administration Pseudoephedrine/Triprolidine 1 combo 12/12/16 17:10 Actifed - PO TID PRN NASAL CONGESTION Sitagliptin Phosphate 100 mg 12/13/16 07:00 12/29/16 06:11 Januvia - PO 100 mg DAILY@0700 [facility] Administration Thiamine HCl 100 mg 12/12/16 22:00 12/28/16 21:15 Vitamin B1 - PO 100 mg HS [facility] Administration Trazodone HCl 150 mg 12/29/16 14:53 Desyrel - PO [facility] Current Side Effect: No Lab tests ordered: No Lab tests reviewed: Yes Provider note:: Patient was seen today, he reports has interrupted sleep, friquently wake up, sleep is interrupted and unrefreshful. He spoke on about his aftercare plans and golas he plans to achieve. Supportive therapy and psychoeducation provided. will increase Trazodone 150 mg po hs(patient reports no side-effects from medications). Continue to monitor progress as needed. Total face to face time:: 35 Mental Status Exam - Mental Status Exam Alert and Oriented to: Time, Place, Person Cognitive Function: Good Patient Appearance: Well Groomed Mood: Sad Affect: Appropriate, Mood Congruent Patient Behavior: Appropriate, Cooperative Speech Pattern: Clear, Appropriate Voice Loudness: Normal Thought Process: Intact, Goal Oriented Thought Disorder: Not Present Hallucinations: Denies Suicidal Ideation: Denies Homicidal Ideation: Denies Insight/Judgement: Fair Sleep: Poorly, Difficulty falling asleep Appetite: Fair, Weight loss Muscle strength/Tone: Normal Gait/Station: Normal Psychiatric Treatment Plan - Problem List (1) Nicotine dependence Current Visit: Yes Qualifiers: Nicotine product type: cigarettes Substance use status: in withdrawal Qualified Code(s): F17.213 - Nicotine dependence, cigarettes, with withdrawal (2) Hypertension Current Visit: Yes Qualifiers: Hypertension type: essential hypertension Qualified Code(s): I10 - Essential (primary) hypertension (3) Alcohol dependence Current Visit: Yes (4) Opioid dependence Current Visit: Yes (5) MDD (major depressive disorder) Current Visit: Yes
[2016-12-29] MEDS: traZODone HCL 50 MG TABLET (FP) PO SCH (21:10)
[2016-12-29] MEDS: THIAMINE HCL 100 MG TABLET (FP) PO SCH (21:10)
[2016-12-29] MEDS: INSULIN DETEMIR 100 UNITS/ML MDV SQ SCH (21:12)
[2016-12-30] MEDS: sitaGLIPtin PHOSPHATE 100 MG TABLET (FP) PO SCH (06:15)
[2016-12-30] MEDS: DOCUSATE SODIUM 100 MG CAPSULE (FP) PO SCH ×3 (06:15→21:15)
[2016-12-30] MEDS: metFORMIN HCL 500 MG TABLET (FP) PO SCH ×2 (06:15→16:53)
[2016-12-30] MEDS: INSULIN (NOVOLOG) ASPART 100 UNITS/ML 10ML VIAL SQ SCH ×2 (06:17→16:54)
[2016-12-30] MEDS: ASPIRIN 81 MG CHEWABLE TABLETS PO SCH (09:54)
[2016-12-30] MEDS: NICOTINE 14 MG/24 HOURS TOPICAL PATCH TD SCH (09:54)
[2016-12-30] MEDS: BUPRENORPHINE/NALOXONE 8 MG/2 MG FILM PACKET SL SCH ×2 (09:54→21:11)
[2016-12-30] MEDS: HYDROCHLOROTHIAZIDE 25 MG TABLET (FP) PO SCH (09:55)
[2016-12-30] MEDS: PRENATAL VITAMINS W/ FOLIC ACID TABLET (FP) PO SCH (09:55)
[2016-12-30] MEDS: LISINOPRIL 20 MG TABLET (FP) PO SCH (09:55)
[2016-12-30] MEDS: APIXABAN 5 MG TABLET PO SCH ×2 (09:55→21:11)
[2016-12-30] MEDS: ESCITALOPRAM OXALATE 20 MG TABLET (FP) PO SCH (09:55)
[2016-12-30] MEDS: CYCLOBENZAPRINE HCL 10 MG TABLET (FP) PO PRN ×2 (09:56→21:15)
[2016-12-30] MEDS: METOPROLOL SUCCINATE 100 MG TAB.SR.24H (FP) PO SCH (10:08)
[2016-12-30] MEDS: ACETAMINOPHEN 325 MG TABLET (FP) PO PRN (12:07)
[2016-12-30] MEDS: traZODone HCL 50 MG TABLET (FP) PO SCH (21:11)
[2016-12-30] MEDS: THIAMINE HCL 100 MG TABLET (FP) PO SCH (21:11)
[2016-12-30] MEDS: METOPROLOL TARTRATE 50 MG TABLET (FP) PO SCH (21:11)
[2016-12-30] MEDS: INSULIN DETEMIR 100 UNITS/ML MDV SQ SCH (21:18)
[2016-12-31] MEDS: sitaGLIPtin PHOSPHATE 100 MG TABLET (FP) PO SCH (06:07)
[2016-12-31] MEDS: metFORMIN HCL 500 MG TABLET (FP) PO SCH ×2 (06:07→17:30)
[2016-12-31] MEDS: DOCUSATE SODIUM 100 MG CAPSULE (FP) PO SCH ×4 (06:08→21:08)
[2016-12-31] MEDS: INSULIN (NOVOLOG) ASPART 100 UNITS/ML 10ML VIAL SQ SCH ×2 (06:09→16:36)
[2016-12-31] MEDS: ASPIRIN 81 MG CHEWABLE TABLETS PO SCH (09:32)
[2016-12-31] MEDS: APIXABAN 5 MG TABLET PO SCH ×2 (09:33→21:09)
[2016-12-31] MEDS: METOPROLOL TARTRATE 50 MG TABLET (FP) PO SCH ×2 (09:33→21:11)
[2016-12-31] MEDS: HYDROCHLOROTHIAZIDE 25 MG TABLET (FP) PO SCH (09:33)
[2016-12-31] MEDS: LISINOPRIL 20 MG TABLET (FP) PO SCH (09:33)
[2016-12-31] MEDS: BUPRENORPHINE/NALOXONE 8 MG/2 MG FILM PACKET SL SCH ×2 (09:33→21:08)
[2016-12-31] MEDS: NICOTINE 14 MG/24 HOURS TOPICAL PATCH TD SCH (09:33)
[2016-12-31] MEDS: ESCITALOPRAM OXALATE 20 MG TABLET (FP) PO SCH (09:33)
[2016-12-31] MEDS: PRENATAL VITAMINS W/ FOLIC ACID TABLET (FP) PO SCH (09:33)
[2016-12-31] MEDS: traZODone HCL 50 MG TABLET (FP) PO SCH (21:08)
[2016-12-31] MEDS: INSULIN DETEMIR 100 UNITS/ML MDV SQ SCH (21:08)
[2016-12-31] MEDS: THIAMINE HCL 100 MG TABLET (FP) PO SCH (21:08)
[2016-12-31] MEDS: CYCLOBENZAPRINE HCL 10 MG TABLET (FP) PO PRN (21:09)
[2017-01-01] MEDS: sitaGLIPtin PHOSPHATE 100 MG TABLET (FP) PO SCH (06:14)
[2017-01-01] MEDS: metFORMIN HCL 500 MG TABLET (FP) PO SCH ×2 (06:14→16:48)
[2017-01-01] MEDS: INSULIN (NOVOLOG) ASPART 100 UNITS/ML 10ML VIAL SQ SCH ×2 (06:15→16:51)
[2017-01-01] MEDS: DOCUSATE SODIUM 100 MG CAPSULE (FP) PO SCH ×3 (06:26→21:05)
[2017-01-01] MEDS: METOPROLOL TARTRATE 50 MG TABLET (FP) PO SCH ×2 (09:43→21:05)
[2017-01-01] MEDS: HYDROCHLOROTHIAZIDE 25 MG TABLET (FP) PO SCH (09:43)
[2017-01-01] MEDS: ASPIRIN 81 MG CHEWABLE TABLETS PO SCH (09:43)
[2017-01-01] MEDS: PRENATAL VITAMINS W/ FOLIC ACID TABLET (FP) PO SCH (09:43)
[2017-01-01] MEDS: APIXABAN 5 MG TABLET PO SCH ×2 (09:43→21:05)
[2017-01-01] MEDS: ESCITALOPRAM OXALATE 20 MG TABLET (FP) PO SCH (09:43)
[2017-01-01] MEDS: LISINOPRIL 20 MG TABLET (FP) PO SCH (09:43)
[2017-01-01] MEDS: BUPRENORPHINE/NALOXONE 8 MG/2 MG FILM PACKET SL SCH ×2 (09:43→21:05)
[2017-01-01] MEDS: NICOTINE 14 MG/24 HOURS TOPICAL PATCH TD SCH (09:44)
[2017-01-01] MEDS: CYCLOBENZAPRINE HCL 10 MG TABLET (FP) PO PRN ×2 (09:45→21:08)
[2017-01-01] MEDS: traZODone HCL 50 MG TABLET (FP) PO SCH (21:05)
[2017-01-01] MEDS: THIAMINE HCL 100 MG TABLET (FP) PO SCH (21:05)
[2017-01-01] MEDS: INSULIN DETEMIR 100 UNITS/ML MDV SQ SCH (21:06)
[2017-01-02] MEDS: DOCUSATE SODIUM 100 MG CAPSULE (FP) PO SCH (05:56)
[2017-01-02] MEDS: INSULIN (NOVOLOG) ASPART 100 UNITS/ML 10ML VIAL SQ SCH (06:55)
[2017-01-02] MEDS: metFORMIN HCL 500 MG TABLET (FP) PO SCH (06:55)
[2017-01-02] MEDS: sitaGLIPtin PHOSPHATE 100 MG TABLET (FP) PO SCH (06:55)
[2017-01-02 06:59] VITALS: BP 133/76; PULSE 64; TEMP 98.1
[2017-01-02] MEDS: ASPIRIN 81 MG CHEWABLE TABLETS PO SCH (09:19)
[2017-01-02] MEDS: PRENATAL VITAMINS W/ FOLIC ACID TABLET (FP) PO SCH (09:19)
[2017-01-02] MEDS: BUPRENORPHINE/NALOXONE 8 MG/2 MG FILM PACKET SL SCH (09:19)
[2017-01-02] MEDS: NICOTINE 14 MG/24 HOURS TOPICAL PATCH TD SCH (09:19)
[2017-01-02] MEDS: ESCITALOPRAM OXALATE 20 MG TABLET (FP) PO SCH (09:19)
[2017-01-02] MEDS: METOPROLOL TARTRATE 50 MG TABLET (FP) PO SCH (09:20)
[2017-01-02] MEDS: HYDROCHLOROTHIAZIDE 25 MG TABLET (FP) PO SCH (09:20)
[2017-01-02] MEDS: APIXABAN 5 MG TABLET PO SCH (09:20)
[2017-01-02] MEDS: LISINOPRIL 20 MG TABLET (FP) PO SCH (09:20)
[2017-01-02] MEDS: CYCLOBENZAPRINE HCL 10 MG TABLET (FP) PO PRN (09:20)
--- NOTE | 2017-01-02 09:47 | PN ---
Psychiatric Progress Note Vital Signs: Vital Signs Period Temp Pulse Resp BP Sys/Mccallum Pulse Ox Last 24 Hr 98.1 F 53-64 18-18 116-133/63-76 Date of Session: 01/02/17 Chief Complaint:: discharge visit HPI: Patient is addressing alcohol, opioid, nicotine dependence comorbid MDD. 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 Current Medications: Active Medications Generic Name Dose Route Start Last Admin Trade Name Freq PRN Reason Stop Dose Admin Acetaminophen 650 mg 12/12/16 17:10 12/30/16 12:07 Tylenol - PO 650 mg Q4H PRN Administration PAIN Al Hydroxide/Mg Hydroxide 30 ml 12/12/16 17:10 Mylanta Oral Suspension - PO Q6H PRN DYSPEPSIA Apixaban 5 mg 12/14/16 10:00 01/02/17 09:20 Eliquis - PO 01/03/17 22:01 5 mg BID MEENU Administration Aspirin 81 mg 12/13/16 10:00 01/02/17 09:19 Asa - PO 81 mg DAILY MEENU Administration Buprenorphine/Naloxone 1 each 12/28/16 22:00 01/02/17 09:19 Suboxone 8mg/2mg Sl Film - SL 1 each BID MEENU Administration Cyclobenzaprine HCl 10 mg 12/15/16 11:55 01/02/17 09:20 Flexeril - PO 10 mg TID PRN Administration MUSCLE SPASMS Diphenhydramine HCl 50 mg 12/12/16 17:10 12/21/16 21:27 Benadryl - PO 50 mg HSMR1 PRN Administration INSOMNIA Docusate Sodium 100 mg 12/29/16 14:00 01/02/17 05:56 Colace - PO 100 mg TID MEENU Administration Escitalopram Oxalate 20 mg 12/16/16 10:00 01/02/17 09:19 Lexapro - PO 20 mg DAILY MEENU Administration Eucalyptus/Menthol/Phenol/Sorbitol 1 each 12/12/16 17:10 Cepastat Lozenge - MM Q4H PRN SORE THROAT Guaifenesin 10 ml 12/12/16 17:10 Robitussin Dm - PO Q6H PRN COUGH Hydrochlorothiazide 25 mg 12/13/16 10:00 01/02/17 09:20 Hctz - PO 25 mg DAILY MEENU Administration Hydroxyzine Pamoate 50 mg 12/12/16 17:10 12/14/16 10:09 Vistaril - PO 50 mg Q4H PRN Administration AGITATION Insulin Aspart 0 units 12/25/16 16:30 01/02/17 06:55 Novolog Vial SQ Not Given BIDAC [facility] Protocol Insulin Detemir 12 units 12/12/16 22:00 01/01/17 21:06 Levemir Vial SQ 12 units HS MEENU Administration Lisinopril 20 mg 12/13/16 10:00 01/02/17 09:20 Prinivil PO 20 mg DAILY MEENU Administration Loperamide HCl 4 mg 12/12/16 17:10 Imodium - PO Q6H PRN DIARRHEA Magnesium Citrate 300 ml 12/12/16 17:10 Citroma - PO Q48H PRN CONSTIPATION Magnesium Hydroxide 30 ml 12/12/16 17:10 Milk Of Magnesia - PO DAILY PRN CONSTIPATION Metformin HCl 500 mg 12/23/16 17:15 01/02/17 06:55 Glucophage - PO 500 mg BID@0700,1630 [facility] Administration Metoprolol Tartrate 50 mg 12/30/16 22:00 01/02/17 09:20 Lopressor - PO 50 mg BID MEENU Administration Nicotine 14 mg 12/13/16 10:00 01/02/17 09:19 Nicoderm Patch - TD 14 mg DAILY MEENU Administration Nicotine Polacrilex 2 mg 12/12/16 17:10 12/13/16 06:15 Nicorette Gum - BC 2 mg Q2H PRN Administration NICOTINE REPLACEMENT RX Multivit/Folic Acid/Iron 1 tab 12/13/16 10:00 01/02/17 09:19 Vitamins (Sjr) - PO 1 tab DAILY [facility] Administration Pseudoephedrine/Triprolidine 1 combo 12/12/16 17:10 Actifed - PO TID PRN NASAL CONGESTION Sitagliptin Phosphate 100 mg 12/13/16 07:00 01/02/17 06:55 Januvia - PO 100 mg DAILY@0700 [facility] Administration Thiamine HCl 100 mg 12/12/16 22:00 01/01/17 21:05 Vitamin B1 - PO 100 mg HS MEENU Administration Trazodone HCl 150 mg 12/29/16 22:00 01/01/17 21:05 Desyrel - PO 150 mg HS MEENU Administration Medication(s) Change(s): Patient reported a good response, feels more energetic and hopefull, no side-effects reported. Current Side Effect: No Lab tests ordered: No Lab tests reviewed: Yes Provider note:: Patient has completed today his treatment and met his goals, he will continue to address his issues at [facility] inpatient rehabilitation treatment. He was educated on his addiction, implications and consequences on his physical and mental health as well as importance to achieve and to maintain sobriety. Patient reports he learned a lot throught this treatment and verbalized his motivations to stay sober and to follow all aspects of his aftercare treatment plans. Trazodone and Lexapro well tolerated, patient reports he feels better, medications for 30 days provided. Patient is stable for discharge. Total face to face time:: 35 Mental Status Exam - Mental Status Exam Alert and Oriented to: Time, Place, Person Cognitive Function: Good Patient Appearance: Well Groomed Mood: Hopeful Affect: Appropriate, Mood Congruent Patient Behavior: Appropriate, Cooperative Speech Pattern: Clear, Appropriate Voice Loudness: Normal Thought Process: Intact, Goal Oriented Thought Disorder: Not Present Hallucinations: Denies Suicidal Ideation: Denies Homicidal Ideation: Denies Insight/Judgement: Fair Sleep: Fair Appetite: Fair Muscle strength/Tone: Normal Gait/Station: Normal Psychiatric Treatment Plan - Problem List (1) Nicotine dependence Current Visit: Yes Qualifiers: Nicotine product type: cigarettes Substance use status: in withdrawal Qualified Code(s): F17.213 - Nicotine dependence, cigarettes, with withdrawal (2) Hypertension Current Visit: Yes Qualifiers: Hypertension type: essential hypertension Qualified Code(s): I10 - Essential (primary) hypertension (3) Alcohol dependence Current Visit: Yes (4) Opioid dependence Current Visit: Yes (5) MDD (major depressive disorder) Current Visit: Yes
== END 2017-01-02 10:45 | disposition home or self-care (01) | DRG 772 ==
LOC: YASAS 11:51 → Y5N 16:54
PROVIDERS: ADMIT Psychiatry & Neurology Psychiatry; ATTEND Psychiatry & Neurology Psychiatry
PROC: HZ42ZZZ Group Counseling for Substance Abuse Treatment, Cognitive-Behavioral (ICD-10-PCS; principal; 2017-01-02)
DX: F11.23 Opioid dependence with withdrawal (principal); F10.230 Alcohol dependence with withdrawal, uncomplicated; F17.213 Nicotine dependence, cigarettes, with withdrawal; F33.9 Major depressive disorder, recurrent, unspecified; I10 Essential (primary) hypertension; E11.9 Type 2 diabetes mellitus without complications; Z79.4 Long term (current) use of insulin; Z79.84 Long term (current) use of oral hypoglycemic drugs; B18.2 Chronic viral hepatitis C; M13.862 Other specified arthritis, left knee; M13.861 Other specified arthritis, right knee; I82.412 Acute embolism and thrombosis of left femoral vein; Z79.01 Long term (current) use of anticoagulants; Z59.0 Homelessness
CPT/HCPCS: 36415; 80053; 81003; 85027; 86593; 93005; 93010; 93971-TC